=== PATIENT | male | born 1990 | race Caucasian/White ===

== ENCOUNTER 2021-05-15 14:18 | Inpatient (IN) ==
[2021-05-15 15:13] LABS: ABS Eosinophils 0.3 10^3/ul (0-0.6); ABS Lymphocytes 2.1 10^3/ul (1.0-4.8); ABS Monocytes 0.6 10^3/ul (0-0.8); ABS Neutrophils 4.2 10^3/ul (1.5-7.7); Eosinophil % 4.8 %; Hematocrit 40 % (42-52); Hemoglobin 13.5 g/dL (14.0-18.0); Mean Corpuscular HGB Conc 34 g/dL (31-36); Mean Corpuscular Hemoglobin 32 pg (27-31); Mean Corpuscular Volume 96 fL (80-94); Mean Platelet Volume 7.8 fL (7.4-10.4); Platelet Count 291 10^3/uL (150-450); Red Blood Count 4.16 10^6 /uL (4.18-5.48); Red Cell Distribution Width 13 % (10-15); White Blood Count 7.3 10^3/uL (3.5-10.8)
[2021-05-15 15:29] LABS: Urine Appearance Clear; Urine Bilirubin Negative (Negative); Urine Blood Negative (Negative); Urine Color Straw; Urine Glucose Negative (Negative); Urine Ketones Negative (Negative); Urine Nitrite Negative (Negative); Urine Protein Negative (Negative); Urine Specific Gravity 1.009 (1.002-1.030); Urine Urobilinogen Negative (Negative)
[2021-05-15 15:46] LABS: ALT 11 U/L (7-52); AST 19 U/L (13-39); Albumin 4.6 g/dL (3.2-5.2); Albumin/Globulin Ratio 1.9 (1-3); Alkaline Phosphatase 82 U/L (35-149); Anion Gap 8 mmol/L (2-11); Blood Urea Nitrogen 13 mg/dL (6-24); CO2 Carbon Dioxide 26 mmol/L (22-32); Calcium 9.2 mg/dL (8.6-10.3); Chloride 102 mmol/L (101-111); EGFR African American 133.6 (>60); EGFR Non-African American 110.4 (>60); Globulin 2.4 g/dL (2-4); Glucose 120 mg/dL (70-100); Potassium 3.8 mmol/L (3.5-5.0); Sodium 136 mmol/L (135-145)
[2021-05-15 16:04] LABS: Acetaminophen < 15 mcg/mL; Alcohol, S < 10 mg/dL (<10); Salicylate < 2.50 mg/dL (<30)
[2021-05-15 16:10] LABS: Urine Benzodiazepine Screen None Detected (None Detect); Urine Cannabinoids Screen None Detected (None Detect); Urine Opiates Screen None Detected (None Detect)
[2021-05-15 16:14] LABS: TSH Ultra Thyroid Stim Horm 1.08 mcIU/mL (0.34-5.60)
[2021-05-15 20:03] LABS: HIV 4th Generation Nonreactive (Nonreactive)
[2021-05-16] MEDS ORDERED: Lorazepam PYXIS KEY PRN (10:07)
[2021-05-16] MEDS ORDERED: LORazepam PO 0-6 for WAM protocol PO SCH (11:00)
[2021-05-16] MEDS ORDERED: LORazepam IM 0-6 mg for WAM protocol IM SCH (11:00)
[2021-05-17] MEDS: Vitamin THERAPEUTIC TAB PO SCH (08:32)
[2021-05-17] MEDS: Venlafaxine XR 75 mg PO SCH (08:33)
[2021-05-18] MEDS: Vitamin THERAPEUTIC TAB PO SCH (09:13)
[2021-05-18] MEDS: Venlafaxine XR 75 mg PO SCH (09:13)
[2021-05-18] MEDS: Al Hydrox/Mg Hydrox/Simet LIQ 30 ML UDC PO PRN (12:53)
[2021-05-19 08:15] LABS: HDL Cholesterol 63.3 mg/dL
[2021-05-19] MEDS: Vitamin THERAPEUTIC TAB PO SCH (08:24)
[2021-05-19] MEDS: Al Hydrox/Mg Hydrox/Simet LIQ 30 ML UDC PO PRN (11:27)
[2021-05-20] MEDS: Vitamin THERAPEUTIC TAB PO SCH (08:17)
[2021-05-20] MEDS ORDERED: COVID-19 VACCINE, AD26(JANSSEN)/PF 0.5 ML IM ONE (11:12)
[2021-05-20 11:57] LABS: Hepatitis C Antibody Negative (Negative)
[2021-05-20 16:00] LABS: Hepatitis B Core IgM Nonreactive (Nonreactive)
[2021-05-20 22:04] LABS: Hepatitis B Surface Antigen Nonreactive (Nonreactive)
[2021-05-20 22:10] LABS: Hepatitis A Ab IgM Negative (Negative)
[2021-05-21 09:13] VITALS: BP 142/104
[2021-05-21] MEDS: Vitamin THERAPEUTIC TAB PO SCH (09:14)
[2021-05-22 13:14] LABS: Chlamydia trachomatis NAA Negative (Negative); Neisseria gonorrhoeae (GC) NAA Negative (Negative)
[2021-05-23 14:30] LABS: RPR Nonreactive (Nonreactive)
[2021-05-25 15:24] LABS: T.Pallidum TP-PA Negative (Negative)
== END 2021-05-21 15:44 | disposition home or self-care (01) | DRG 897 ==
LOC: ED 14:18 → BSU 05-16 09:53
PROVIDERS: ADMIT Psychiatry & Neurology Psychiatry; ATTEND Psychiatry & Neurology Psychiatry

== ENCOUNTER 2022-07-07 13:20 | Inpatient (IN) ==
[2022-07-07] MEDS ORDERED: LORazepam 2 mg VIAL 1 ml IV PUSH ONE ×4 (13:26→15:36)
[2022-07-07] MEDS ORDERED: Lorazepam PYXIS KEY PRN ×5 (13:26→18:26)
[2022-07-07] MEDS ORDERED: Lactated Ringers 1000 ml BAG 1,000 ML IV ONE (13:26)
[2022-07-07] MEDS ORDERED: Charcoal ACTIVATED 25 GM/120 ML BTL PO ONE (13:27)
[2022-07-07 13:50] LABS: ABS Basophils 0.1 10^3/ul (0-0.2); ABS Eosinophils 0.3 10^3/ul (0-0.6); ABS Lymphocytes 1.7 10^3/ul (1.0-4.8); ABS Monocytes 0.6 10^3/ul (0-0.8); ABS Neutrophils 5.7 10^3/ul (1.5-7.7); Eosinophil % 3.6 %; Hematocrit 37 % (42-52); Hemoglobin 12.2 g/dL (14.0-18.0); Lymphocyte % 20.1 %; Mean Corpuscular HGB Conc 33 g/dL (31-36); Mean Corpuscular Hemoglobin 31 pg (27-31); Mean Corpuscular Volume 95 fL (80-94); Mean Platelet Volume 7.3 fL (7.4-10.4); Platelet Count 388 10^3/uL (150-450); Red Blood Count 3.95 10^6 /uL (4.18-5.48); Red Cell Distribution Width 14 % (10-15); White Blood Count 8.3 10^3/uL (3.5-10.8)
[2022-07-07 14:56] LABS: ALT 21 U/L (7-52); Albumin 4.1 g/dL (3.2-5.2); Albumin/Globulin Ratio 2.2 (1-3); Alcohol, S < 13 mg/dL (<13); Alkaline Phosphatase 65 U/L (35-149); Blood Urea Nitrogen 9 mg/dL (6-24); CO2 Carbon Dioxide 23 mmol/L (22-32); Calcium 8.2 mg/dL (8.6-10.3); Chloride 108 mmol/L (101-111); Creatine Kinase 91 U/L (10-223); Globulin 1.9 g/dL (2-4); Glucose 88 mg/dL (70-100); Lithium 0.63 mmol/L (0.6-1.2); Salicylate < 2.50 mg/dL (<30); Sodium 139 mmol/L (135-145); eGFR CKD-EPI 128.2 (>60)
[2022-07-07 14:58] LABS: Acetaminophen < 15 mcg/mL
[2022-07-07 14:59] LABS: Urine Benzodiazepine Screen None Detected (None Detect); Urine Cannabinoids Screen None Detected (None Detect); Urine Opiates Screen None Detected (None Detect)
[2022-07-07 14:59] LABS: Anion Gap 8 mmol/L (2-11)
[2022-07-07 15:06] LABS: TSH Ultra Thyroid Stim Horm 4.34 mcIU/mL (0.34-5.60)
[2022-07-07 15:22] LABS: Urine Appearance Clear; Urine Bilirubin Negative (Negative); Urine Blood Negative (Negative); Urine Color Straw; Urine Glucose Negative (Negative); Urine Ketones Negative (Negative); Urine Nitrite Negative (Negative); Urine Protein Negative (Negative); Urine Urobilinogen 0.2 (Negative) (Negative)
[2022-07-07] MEDS ORDERED: diazePAM INJ CARPUJECT 5 MG/ML SYRINGE IV ONE (15:36)
[2022-07-07] MEDS ORDERED: NS 0.9% 1000 ml BAG 1,000 ML IV SCH (17:45)
[2022-07-07] MEDS ORDERED: Labetalol IV 5 MG/ML 20 ml VIAL IV PUSH PRN (18:27)
[2022-07-07 18:35] LABS: Potassium Redraw 4.1 mmol/L (3.5-5.0)
[2022-07-07] MEDS ORDERED: Senna TAB 8.6 mg TAB PO SCH (21:00)
[2022-07-07 22:29] LABS: Magnesium 1.9 mg/dL (1.9-2.7); Phosphorus 3.2 mg/dL (2.5-5.0)
[2022-07-07] MEDS: LORazepam 2 mg VIAL 1 ml IV PUSH PRN ×2 (22:46→23:05)
[2022-07-07] MEDS: Polyethylene Glycol 3350 17 GM PACKET PO SCH (23:10)
[2022-07-07] MEDS: Heparin 5000 UNITS/ML 1 mL VIAL SUBCUT SCH (23:11)
[2022-07-07] MEDS ORDERED: Magnesium Sulfate IV 1GM/100ML 1 GM/100 ML BAG IV ONE (23:15)
[2022-07-08 05:52] LABS: ABS Basophils 0.1 10^3/ul (0-0.2); ABS Eosinophils 0.4 10^3/ul (0-0.6); ABS Monocytes 0.7 10^3/ul (0-0.8); ABS Neutrophils 6.6 10^3/ul (1.5-7.7); Eosinophil % 3.9 %; Hematocrit 36 % (42-52); Hemoglobin 11.6 g/dL (14.0-18.0); Lymphocyte % 20.4 %; Mean Corpuscular HGB Conc 32 g/dL (31-36); Mean Corpuscular Hemoglobin 31 pg (27-31); Mean Corpuscular Volume 96 fL (80-94); Mean Platelet Volume 7.4 fL (7.4-10.4); Nucleated Red Blood Cells % 0.1; Platelet Count 360 10^3/uL (150-450); Red Blood Count 3.74 10^6 /uL (4.18-5.48); Red Cell Distribution Width 13 % (10-15); White Blood Count 9.7 10^3/uL (3.5-10.8)
[2022-07-08 06:00] LABS: Calcium 8.9 mg/dL (8.6-10.3); Magnesium 2.2 mg/dL (1.9-2.7); Phosphorus 4.2 mg/dL (2.5-5.0); Potassium 4.1 mmol/L (3.5-5.0); Total Bilirubin 0.6 mg/dL (0.2-1.0); eGFR CKD-EPI 122.7 (>60)
[2022-07-08] MEDS: Heparin 5000 UNITS/ML 1 mL VIAL SUBCUT SCH ×2 (06:17→17:40)
[2022-07-08] MEDS: LORazepam 2 mg VIAL 1 ml IV PUSH PRN ×2 (06:17→07:57)
[2022-07-08] MEDS: Polyethylene Glycol 3350 17 GM PACKET PO SCH (07:57)
[2022-07-08] MEDS ORDERED: Al Hydrox/Mg Hydrox/Simet LIQ 30 ML UDC PO PRN (11:41)
[2022-07-08] MEDS ORDERED: Lithium Carb ER 300 mg TAB(NF) PO ONE (18:19)
[2022-07-08] MEDS: CMCS: Lithium Carb ER 300 mg TAB(NF) PO SCH ×2 (18:21→19:07)
[2022-07-09] MEDS: Multivitamins/Minerals TAB PO SCH (09:00)
[2022-07-09] MEDS: CMCS: Vortioxetine 10 mg TAB (NF) PO SCH (09:00)
[2022-07-09] MEDS: CMCS: Lithium Carb ER 300 mg TAB(NF) PO SCH (21:14)
[2022-07-10] MEDS: CMCS: Vortioxetine 10 mg TAB (NF) PO SCH (09:51)
[2022-07-10] MEDS: Multivitamins/Minerals TAB PO SCH (09:51)
[2022-07-10] MEDS: CMCS: Lithium Carb ER 300 mg TAB(NF) PO SCH (20:55)
[2022-07-11] MEDS: CMCS: Vortioxetine 10 mg TAB (NF) PO SCH (08:28)
[2022-07-11] MEDS: Multivitamins/Minerals TAB PO SCH (08:29)
[2022-07-11] MEDS: CMCS: Lithium Carb ER 300 mg TAB(NF) PO SCH (20:37)
[2022-07-12] MEDS: Multivitamins/Minerals TAB PO SCH (09:43)
[2022-07-12] MEDS: CMCS: Vortioxetine 10 mg TAB (NF) PO SCH (09:43)
[2022-07-12] MEDS: CMCS: Lithium Carb ER 300 mg TAB(NF) PO SCH (20:40)
[2022-07-13] MEDS: CMCS: Vortioxetine 10 mg TAB (NF) PO SCH (09:57)
[2022-07-13] MEDS: Multivitamins/Minerals TAB PO SCH (09:58)
[2022-07-13] MEDS: CMCS: Lithium Carb ER 300 mg TAB(NF) PO SCH (20:13)
[2022-07-14] MEDS: CMCS: Vortioxetine 10 mg TAB (NF) PO SCH (08:34)
[2022-07-14] MEDS: Multivitamins/Minerals TAB PO SCH (08:34)
[2022-07-14] MEDS: CMCS: Lithium Carb ER 300 mg TAB(NF) PO SCH (20:56)
[2022-07-15] MEDS: CMCS: Vortioxetine 10 mg TAB (NF) PO SCH (08:32)
[2022-07-15] MEDS: Multivitamins/Minerals TAB PO SCH (08:36)
[2022-07-15] MEDS: CMCS: Lithium Carb ER 300 mg TAB(NF) PO SCH (21:14)
[2022-07-16] MEDS: Multivitamins/Minerals TAB PO SCH (08:58)
[2022-07-16] MEDS: CMCS: Vortioxetine 10 mg TAB (NF) PO SCH (08:58)
[2022-07-16] MEDS: CMCS: Lithium Carb ER 300 mg TAB(NF) PO SCH (20:24)
[2022-07-17] MEDS: Multivitamins/Minerals TAB PO SCH (07:25)
[2022-07-17] MEDS: CMCS: Vortioxetine 10 mg TAB (NF) PO SCH (07:25)
[2022-07-17] MEDS: CMCS: Lithium Carb ER 300 mg TAB(NF) PO SCH (20:44)
[2022-07-18] MEDS: Multivitamins/Minerals TAB PO SCH (10:04)
[2022-07-18] MEDS: CMCS: Vortioxetine 10 mg TAB (NF) PO SCH (10:04)
[2022-07-18] MEDS: CMCS: Lithium Carb ER 300 mg TAB(NF) PO SCH (21:38)
[2022-07-19] MEDS: Multivitamins/Minerals TAB PO SCH (07:48)
[2022-07-19] MEDS: CMCS: Vortioxetine 10 mg TAB (NF) PO SCH (07:48)
[2022-07-19] MEDS: CMCS: Lithium Carb ER 300 mg TAB(NF) PO SCH (20:07)
[2022-07-20] MEDS: CMCS: Vortioxetine 10 mg TAB (NF) PO SCH (07:57)
[2022-07-20] MEDS: Multivitamins/Minerals TAB PO SCH (07:58)
[2022-07-20 08:05] LABS: HDL Cholesterol 60.9 mg/dL; Lithium 1.25 mmol/L (0.6-1.2)
[2022-07-20 10:55] VITALS: BP 123/79
== END 2022-07-20 12:30 | disposition home or self-care (01) | DRG 917 ==
LOC: ED 13:20 → EDHOLD 17:36 → ICU 20:32 → UNDODISIN 07-08 01:00 → BSU 07-08 15:18
PROVIDERS: ADMIT Surgery Surgical Critical Care; ATTEND Surgery Surgical Critical Care

== ENCOUNTER 2022-07-30 13:46 | Inpatient (IN) ==
[2022-07-30] MEDS ORDERED: Charcoal ACTIVATED 25 GM/120 ML BTL PO ONE (14:10)
[2022-07-30 15:01] LABS: ABS Basophils 0.1 10^3/ul (0-0.2); ABS Eosinophils 0.1 10^3/ul (0-0.6); ABS Lymphocytes 1.5 10^3/ul (1.0-4.8); ABS Monocytes 0.5 10^3/ul (0-0.8); ABS Neutrophils 5.1 10^3/ul (1.5-7.7); Eosinophil % 1.8 %; Hematocrit 36 % (42-52); Hemoglobin 12.1 g/dL (14.0-18.0); Lymphocyte % 20.6 %; Mean Corpuscular HGB Conc 34 g/dL (31-36); Mean Corpuscular Hemoglobin 32 pg (27-31); Mean Corpuscular Volume 94 fL (80-94); Mean Platelet Volume 6.9 fL (7.4-10.4); Platelet Count 389 10^3/uL (150-450); Red Blood Count 3.81 10^6 /uL (4.18-5.48); Red Cell Distribution Width 13 % (10-15); White Blood Count 7.4 10^3/uL (3.5-10.8)
[2022-07-30 15:48] LABS: ALT 20 U/L (7-52); AST 16 U/L (13-39); Albumin 4.7 g/dL (3.2-5.2); Albumin/Globulin Ratio 2.1 (1-3); Alcohol, S < 13 mg/dL (<13); Alkaline Phosphatase 73 U/L (35-149); Anion Gap 8 mmol/L (2-11); Blood Urea Nitrogen 11 mg/dL (6-24); CO2 Carbon Dioxide 27 mmol/L (22-32); Calcium 9.5 mg/dL (8.6-10.3); Chloride 103 mmol/L (101-111); Globulin 2.2 g/dL (2-4); Glucose 87 mg/dL (70-100); Potassium 4.1 mmol/L (3.5-5.0); Salicylate < 2.50 mg/dL (<30); Sodium 138 mmol/L (135-145); Total Protein 6.9 g/dL (6.4-8.9); eGFR CKD-EPI 118.1 (>60)
[2022-07-30 15:56] LABS: Acetaminophen < 15 mcg/mL
[2022-07-30 15:57] LABS: Urine Appearance Clear; Urine Bilirubin Negative (Negative); Urine Blood Negative (Negative); Urine Color Straw; Urine Glucose Negative (Negative); Urine Ketones Negative (Negative); Urine Nitrite Negative (Negative); Urine Protein Negative (Negative); Urine Specific Gravity 1.004 (1.002-1.030); Urine Urobilinogen Negative (Negative)
[2022-07-30 16:00] LABS: TSH Ultra Thyroid Stim Horm 1.52 mcIU/mL (0.34-5.60)
[2022-07-30 16:14] LABS: Lithium 0.18 mmol/L (0.6-1.2)
[2022-07-30 16:18] LABS: Urine Benzodiazepine Screen None Detected (None Detect); Urine Cannabinoids Screen None Detected (None Detect); Urine Opiates Screen None Detected (None Detect)
[2022-07-31 07:54] LABS: HDL Cholesterol 50.6 mg/dL
[2022-07-31] MEDS: Vortioxetine 10 mg TAB (NF) PO SCH (08:52)
[2022-08-01] MEDS: Vortioxetine 10 mg TAB (NF) PO SCH (08:44)
[2022-08-01] MEDS: Al Hydrox/Mg Hydrox/Simet LIQ 30 ML UDC PO PRN (13:45)
[2022-08-01] MEDS ORDERED: Ondansetron ODT 4 mg TAB 4 MG TAB PO ONE (18:49)
[2022-08-01] MEDS: Lithium Carb ER 300 mg TAB(NF) PO SCH (21:00)
[2022-08-02] MEDS: Vortioxetine 10 mg TAB (NF) PO SCH (10:13)
[2022-08-02] MEDS: Multivitamins/Minerals TAB PO SCH (10:15)
[2022-08-02] MEDS: Lithium Carb ER 300 mg TAB(NF) PO SCH (20:59)
[2022-08-03] MEDS: Multivitamins/Minerals TAB PO SCH (11:15)
[2022-08-03] MEDS: Vortioxetine 10 mg TAB (NF) PO SCH (11:16)
[2022-08-03 12:41] LABS: ABS Basophils 0.1 10^3/ul (0-0.2); ABS Eosinophils 0.3 10^3/ul (0-0.6); ABS Lymphocytes 1.9 10^3/ul (1.0-4.8); ABS Monocytes 0.6 10^3/ul (0-0.8); ABS Neutrophils 4.3 10^3/ul (1.5-7.7); Eosinophil % 4.1 %; Hematocrit 41 % (42-52); Hemoglobin 13.4 g/dL (14.0-18.0); Lymphocyte % 26.8 %; Mean Corpuscular HGB Conc 33 g/dL (31-36); Mean Corpuscular Hemoglobin 31 pg (27-31); Mean Corpuscular Volume 95 fL (80-94); Mean Platelet Volume 7.1 fL (7.4-10.4); Platelet Count 399 10^3/uL (150-450); Red Cell Distribution Width 14 % (10-15); White Blood Count 7.1 10^3/uL (3.5-10.8)
[2022-08-03] MEDS: Lithium Carb ER 300 mg TAB(NF) PO SCH (22:13)
[2022-08-04] MEDS: Vortioxetine 10 mg TAB (NF) PO SCH (08:37)
[2022-08-04] MEDS: Multivitamins/Minerals TAB PO SCH (08:38)
[2022-08-04] MEDS: Lithium Carb ER 300 mg TAB(NF) PO SCH (21:24)
[2022-08-05] MEDS: Vortioxetine 10 mg TAB (NF) PO SCH (08:40)
[2022-08-05] MEDS: Multivitamins/Minerals TAB PO SCH (08:41)
[2022-08-05] MEDS: Lithium Carb ER 300 mg TAB(NF) PO SCH (21:01)
[2022-08-06] MEDS: Multivitamins/Minerals TAB PO SCH (09:11)
[2022-08-06] MEDS: Vortioxetine 10 mg TAB (NF) PO SCH (09:11)
[2022-08-06] MEDS: Magnesium Hydroxide LIQ 30 ML UDC PO PRN (16:38)
[2022-08-06] MEDS: Lithium Carb ER 300 mg TAB(NF) PO SCH (21:53)
[2022-08-07] MEDS: Multivitamins/Minerals TAB PO SCH (08:58)
[2022-08-07] MEDS: Lithium Carb ER 300 mg TAB(NF) PO SCH (21:06)
[2022-08-08] MEDS: Multivitamins/Minerals TAB PO SCH (09:34)
[2022-08-08] MEDS: Lithium Carb ER 300 mg TAB(NF) PO SCH (20:03)
[2022-08-09] MEDS: Multivitamins/Minerals TAB PO SCH (08:19)
[2022-08-09] MEDS: Lithium Carb ER 300 mg TAB(NF) PO SCH (20:07)
[2022-08-10] MEDS: Multivitamins/Minerals TAB PO SCH (08:42)
[2022-08-10 19:06] LABS: ABS Basophils 0.1 10^3/ul (0-0.2); ABS Eosinophils 0.4 10^3/ul (0-0.6); ABS Lymphocytes 2.6 10^3/ul (1.0-4.8); ABS Monocytes 0.9 10^3/ul (0-0.8); ABS Neutrophils 6.5 10^3/ul (1.5-7.7); Eosinophil % 3.7 %; Hematocrit 36 % (42-52); Lymphocyte % 24.9 %; Mean Corpuscular HGB Conc 33 g/dL (31-36); Mean Corpuscular Hemoglobin 31 pg (27-31); Mean Corpuscular Volume 93 fL (80-94); Mean Platelet Volume 7.3 fL (7.4-10.4); Platelet Count 308 10^3/uL (150-450); Red Blood Count 3.86 10^6 /uL (4.18-5.48); Red Cell Distribution Width 14 % (10-15); White Blood Count 10.4 10^3/uL (3.5-10.8)
[2022-08-10] MEDS: Lithium Carb ER 300 mg TAB(NF) PO SCH (20:34)
[2022-08-11] MEDS: Multivitamins/Minerals TAB PO SCH (11:51)
[2022-08-11 13:50] LABS: Urine Appearance Clear; Urine Bilirubin Negative (Negative); Urine Blood Negative (Negative); Urine Color Yellow; Urine Glucose Negative (Negative); Urine Ketones Negative (Negative); Urine Nitrite Negative (Negative); Urine Protein Negative (Negative); Urine Specific Gravity 1.014 (1.002-1.030); Urine Urobilinogen Negative (Negative)
[2022-08-11] MEDS: Al Hydrox/Mg Hydrox/Simet LIQ 30 ML UDC PO PRN (17:06)
[2022-08-11] MEDS: Lithium Carb ER 300 mg TAB(NF) PO SCH (21:10)
[2022-08-12] MEDS: Multivitamins/Minerals TAB PO SCH (09:46)
[2022-08-12] MEDS: Magnesium Hydroxide LIQ 30 ML UDC PO PRN (15:56)
[2022-08-12] MEDS: Lithium Carb ER 300 mg TAB(NF) PO SCH (21:38)
[2022-08-13] MEDS: Multivitamins/Minerals TAB PO SCH (10:11)
[2022-08-13] MEDS: OLANZapine 5 mg TAB *ODT PO PRN ×2 (12:23→18:04)
[2022-08-13] MEDS: Lithium Carb ER 300 mg TAB(NF) PO SCH (20:22)
[2022-08-14] MEDS: Magnesium Hydroxide LIQ 30 ML UDC PO PRN (08:50)
[2022-08-14] MEDS: OLANZapine 5 mg TAB *ODT PO PRN ×2 (08:50→14:35)
[2022-08-14] MEDS: Multivitamins/Minerals TAB PO SCH (08:50)
[2022-08-14] MEDS: Lithium Carb ER 300 mg TAB(NF) PO SCH (20:11)
[2022-08-15] MEDS: Multivitamins/Minerals TAB PO SCH (08:41)
[2022-08-15] MEDS: OLANZapine 5 mg TAB *ODT PO PRN ×2 (09:18→14:59)
[2022-08-15] MEDS: Lithium Carb ER 300 mg TAB(NF) PO SCH (20:19)
[2022-08-16] MEDS: Multivitamins/Minerals TAB PO SCH (08:56)
[2022-08-16] MEDS: OLANZapine 5 mg TAB *ODT PO PRN ×2 (08:57→13:28)
[2022-08-16] MEDS: Magnesium Hydroxide LIQ 30 ML UDC PO PRN (14:28)
[2022-08-16 19:14] LABS: ABS Basophils 0.1 10^3/ul (0-0.2); ABS Eosinophils 0.3 10^3/ul (0-0.6); ABS Lymphocytes 2.1 10^3/ul (1.0-4.8); ABS Monocytes 0.9 10^3/ul (0-0.8); ABS Neutrophils 7.9 10^3/ul (1.5-7.7); Eosinophil % 2.9 %; Hematocrit 36 % (42-52); Hemoglobin 11.8 g/dL (14.0-18.0); Lymphocyte % 18.6 %; Mean Corpuscular HGB Conc 33 g/dL (31-36); Mean Corpuscular Hemoglobin 31 pg (27-31); Mean Corpuscular Volume 94 fL (80-94); Mean Platelet Volume 7.5 fL (7.4-10.4); Platelet Count 342 10^3/uL (150-450); Red Blood Count 3.85 10^6 /uL (4.18-5.48); Red Cell Distribution Width 14 % (10-15); White Blood Count 11.3 10^3/uL (3.5-10.8)
[2022-08-16] MEDS: Lithium Carb ER 300 mg TAB(NF) PO SCH (20:56)
[2022-08-17] MEDS: OLANZapine 5 mg TAB *ODT PO PRN ×3 (07:21→18:06)
[2022-08-17] MEDS: Multivitamins/Minerals TAB PO SCH (09:22)
[2022-08-17] MEDS: Lithium Carb ER 300 mg TAB(NF) PO SCH (20:26)
[2022-08-18] MEDS: Multivitamins/Minerals TAB PO SCH (08:32)
[2022-08-18] MEDS: Magnesium Hydroxide LIQ 30 ML UDC PO PRN (11:49)
[2022-08-18] MEDS: OLANZapine 5 mg TAB *ODT PO PRN (13:09)
[2022-08-18] MEDS: Lithium Carb ER 300 mg TAB(NF) PO SCH (19:45)
[2022-08-19 09:18] LABS: Clozapine 163 ng/mL (350-600); Clozapine & Norclozapine Level 332 ng/mL; Norclozapine 169 ng/mL
[2022-08-19] MEDS: Multivitamins/Minerals TAB PO SCH (09:19)
[2022-08-19] MEDS: Al Hydrox/Mg Hydrox/Simet LIQ 30 ML UDC PO PRN (17:23)
[2022-08-19] MEDS: Magnesium Hydroxide LIQ 30 ML UDC PO PRN (18:30)
[2022-08-19] MEDS: Lithium Carb ER 300 mg TAB(NF) PO SCH (19:57)
[2022-08-20] MEDS: Multivitamins/Minerals TAB PO SCH (08:33)
[2022-08-20] MEDS: Al Hydrox/Mg Hydrox/Simet LIQ 30 ML UDC PO PRN (10:44)
[2022-08-20] MEDS: Magnesium Hydroxide LIQ 30 ML UDC PO PRN (11:50)
[2022-08-20] MEDS: Polyethylene Glycol 3350 17 GM PACKET PO PRN (14:19)
[2022-08-20] MEDS: Lithium Carb ER 300 mg TAB(NF) PO SCH (21:15)
[2022-08-21] MEDS: Polyethylene Glycol 3350 17 GM PACKET PO PRN (08:32)
[2022-08-21] MEDS: Multivitamins/Minerals TAB PO SCH (08:32)
[2022-08-21] MEDS: Lithium Carb ER 300 mg TAB(NF) PO SCH (20:16)
[2022-08-22] MEDS: Multivitamins/Minerals TAB PO SCH (08:35)
[2022-08-22] MEDS: Al Hydrox/Mg Hydrox/Simet LIQ 30 ML UDC PO PRN (18:05)
[2022-08-22] MEDS: Lithium Carb ER 300 mg TAB(NF) PO SCH (21:04)
[2022-08-23 08:10] VITALS: BP 141/96
[2022-08-23] MEDS: Multivitamins/Minerals TAB PO SCH (08:19)
[2022-08-23] MEDS: Al Hydrox/Mg Hydrox/Simet LIQ 30 ML UDC PO PRN (12:52)
== END 2022-08-23 14:27 | disposition home or self-care (01) | DRG 885 ==
LOC: ED 13:46 → BSU 23:00
PROVIDERS: ADMIT Psychiatry & Neurology Psychiatry; ATTEND Psychiatry & Neurology Psychiatry

== ENCOUNTER 2022-08-30 13:03 | Inpatient (IN) ==
[2022-08-30] MEDS ORDERED: Lorazepam PYXIS KEY PRN ×4 (13:11→19:47)
[2022-08-30] MEDS ORDERED: LORazepam 2 mg VIAL 1 ml IV PUSH ONE ×3 (13:11→17:56)
[2022-08-30] MEDS ORDERED: NS 0.9% 1000 ml BAG 1,000 ML IV ONE (13:12)
[2022-08-30 13:35] LABS: ABS Basophils 0.1 10^3/ul (0-0.2); ABS Eosinophils 0.4 10^3/ul (0-0.6); ABS Lymphocytes 3.1 10^3/ul (1.0-4.8); ABS Monocytes 1.1 10^3/ul (0-0.8); ABS Neutrophils 8.1 10^3/ul (1.5-7.7); Eosinophil % 3.2 %; Hematocrit 38 % (42-52); Hemoglobin 12.4 g/dL (14.0-18.0); Lymphocyte % 24.5 %; Mean Corpuscular HGB Conc 33 g/dL (31-36); Mean Corpuscular Hemoglobin 31 pg (27-31); Mean Corpuscular Volume 93 fL (80-94); Mean Platelet Volume 7.4 fL (7.4-10.4); Nucleated Red Blood Cells % 0.1; Platelet Count 402 10^3/uL (150-450); Red Blood Count 4.04 10^6 /uL (4.18-5.48); Red Cell Distribution Width 13 % (10-15); White Blood Count 12.8 10^3/uL (3.5-10.8)
[2022-08-30 14:07] LABS: ALT 52 U/L (7-52); AST 27 U/L (13-39); Acetaminophen < 15 mcg/mL; Albumin 4.8 g/dL (3.2-5.2); Albumin/Globulin Ratio 1.9 (1-3); Alcohol, S < 13 mg/dL (<13); Alkaline Phosphatase 73 U/L (35-149); Anion Gap 10 mmol/L (2-11); Blood Urea Nitrogen 13 mg/dL (6-24); CO2 Carbon Dioxide 26 mmol/L (22-32); Calcium 9.4 mg/dL (8.6-10.3); Chloride 103 mmol/L (101-111); Creatine Kinase 56 U/L (10-223); Globulin 2.5 g/dL (2-4); Glucose 111 mg/dL (70-100); Lithium 0.91 mmol/L (0.6-1.2); Potassium 3.5 mmol/L (3.5-5.0); Salicylate < 2.50 mg/dL (<30); Sodium 139 mmol/L (135-145); Total Protein 7.3 g/dL (6.4-8.9); eGFR CKD-EPI 120.8 (>60)
[2022-08-30 14:20] LABS: TSH Ultra Thyroid Stim Horm 6.31 mcIU/mL (0.34-5.60)
[2022-08-30 14:53] LABS: Magnesium 2.1 mg/dL (1.9-2.7)
[2022-08-30] MEDS ORDERED: LORazepam 2 mg VIAL 1 ml ONE (15:15)
[2022-08-30 16:35] LABS: Urine Benzodiazepine Screen None Detected (None Detect); Urine Cannabinoids Screen None Detected (None Detect); Urine Opiates Screen None Detected (None Detect)
[2022-08-30] MEDS ORDERED: NS 0.9% 1000 ml BAG 2,000 ML IV ONE (17:43)
[2022-08-30] MEDS ORDERED: Ondansetron 4 mg VIAL 2 MG/ML 2 ml VIAL IV PRN (18:58)
[2022-08-30] MEDS ORDERED: Lactated Ringers 1000 ml BAG 1,000 ML IV ONE (19:52)
[2022-08-31] MEDS: LORazepam 2 mg VIAL 1 ml IV PUSH PRN ×2 (01:02→08:42)
[2022-08-31 05:55] LABS: ABS Basophils 0.1 10^3/ul (0-0.2); ABS Eosinophils 0.3 10^3/ul (0-0.6); ABS Lymphocytes 1.8 10^3/ul (1.0-4.8); ABS Monocytes 0.9 10^3/ul (0-0.8); ABS Neutrophils 6.1 10^3/ul (1.5-7.7); Eosinophil % 3.6 %; Hematocrit 36 % (42-52); Hemoglobin 11.9 g/dL (14.0-18.0); Lymphocyte % 19.7 %; Mean Corpuscular HGB Conc 33 g/dL (31-36); Mean Corpuscular Hemoglobin 31 pg (27-31); Mean Corpuscular Volume 94 fL (80-94); Mean Platelet Volume 7.2 fL (7.4-10.4); Platelet Count 370 10^3/uL (150-450); Red Blood Count 3.83 10^6 /uL (4.18-5.48); Red Cell Distribution Width 14 % (10-15); White Blood Count 9.3 10^3/uL (3.5-10.8)
[2022-08-31 06:38] LABS: % Iron Saturation 37 % (15-55); Anion Gap 8 mmol/L (2-11); Blood Urea Nitrogen 9 mg/dL (6-24); CO2 Carbon Dioxide 27 mmol/L (22-32); Calcium 9.4 mg/dL (8.6-10.3); Chloride 106 mmol/L (101-111); Glucose 90 mg/dL (70-100); Iron 141 ug/dL (50-212); Lithium 0.54 mmol/L (0.6-1.2); Potassium 4.6 mmol/L (3.5-5.0); Sodium 141 mmol/L (135-145); Total Iron Binding Capacity 379 mcg/dL (250-450); Transferrin 271 mg/dL (203-362); Unsaturated Iron Binding 238 ug/dL; eGFR CKD-EPI 122.7 (>60)
[2022-08-31 06:57] LABS: Ferritin 89.8 ng/mL (24-336)
[2022-08-31 07:01] LABS: Vitamin B12 403 pg/mL (180-914)
[2022-08-31 08:39] LABS: Folate > 20.00 ng/mL (5.90-24.80)
[2022-08-31] MEDS: OLANZapine 5 mg TAB *ODT PO PRN (15:19)
[2022-08-31] MEDS: CMCS: Lithium Carb ER 300 mg TAB(NF) PO SCH (21:43)
[2022-09-01 08:39] LABS: HDL Cholesterol 60.1 mg/dL
[2022-09-01] MEDS: CMCS: Lithium Carb ER 300 mg TAB(NF) PO SCH (22:04)
[2022-09-02] MEDS: CMCS: Lithium Carb ER 300 mg TAB(NF) PO SCH (21:19)
[2022-09-03] MEDS: OLANZapine 5 mg TAB *ODT PO PRN (17:16)
[2022-09-03] MEDS: CMCS: Lithium Carb ER 300 mg TAB(NF) PO SCH (20:42)
[2022-09-04] MEDS: CMCS: Lithium Carb ER 300 mg TAB(NF) PO SCH (20:49)
[2022-09-05] MEDS: Al Hydrox/Mg Hydrox/Simet LIQ 30 ML UDC PO PRN (14:33)
[2022-09-05] MEDS: CMCS: Lithium Carb ER 300 mg TAB(NF) PO SCH (20:06)
[2022-09-06] MEDS: CMCS: Lithium Carb ER 300 mg TAB(NF) PO SCH (20:17)
[2022-09-07 00:35] LABS: Clozapine 169 ng/mL (350-600); Clozapine & Norclozapine Level 336 ng/mL; Norclozapine 167 ng/mL
[2022-09-07 14:34] LABS: ABS Basophils 0.1 10^3/ul (0-0.2); ABS Eosinophils 0.4 10^3/ul (0-0.6); ABS Lymphocytes 2.1 10^3/ul (1.0-4.8); ABS Monocytes 1.1 10^3/ul (0-0.8); ABS Neutrophils 11.5 10^3/ul (1.5-7.7); Eosinophil % 2.4 %; Hematocrit 40 % (42-52); Hemoglobin 13.7 g/dL (14.0-18.0); Mean Corpuscular HGB Conc 34 g/dL (31-36); Mean Corpuscular Hemoglobin 32 pg (27-31); Mean Corpuscular Volume 93 fL (80-94); Mean Platelet Volume 7.4 fL (7.4-10.4); Platelet Count 379 10^3/uL (150-450); Red Blood Count 4.32 10^6 /uL (4.18-5.48); Red Cell Distribution Width 14 % (10-15); White Blood Count 15.1 10^3/uL (3.5-10.8)
[2022-09-07] MEDS: CMCS: Lithium Carb ER 300 mg TAB(NF) PO SCH (20:31)
[2022-09-08] MEDS: Al Hydrox/Mg Hydrox/Simet LIQ 30 ML UDC PO PRN (15:49)
[2022-09-08] MEDS: CMCS: Lithium Carb ER 300 mg TAB(NF) PO SCH (21:15)
[2022-09-09] MEDS: CMCS: Lithium Carb ER 300 mg TAB(NF) PO SCH (22:07)
[2022-09-10] MEDS: CMCS: Lithium Carb ER 300 mg TAB(NF) PO SCH (20:01)
[2022-09-11] MEDS: CMCS: Lithium Carb ER 300 mg TAB(NF) PO SCH (20:33)
[2022-09-12] MEDS: CMCS: Lithium Carb ER 300 mg TAB(NF) PO SCH (21:00)
[2022-09-12] MEDS ORDERED: Lithium Carbonate ER 450mg TAB PO ONE (21:00)
[2022-09-13] MEDS: CMCS: Lithium Carb ER 300 mg TAB(NF) PO SCH (21:08)
[2022-09-14 19:24] LABS: ABS Basophils 0.1 10^3/ul (0-0.2); ABS Eosinophils 0.4 10^3/ul (0-0.6); ABS Lymphocytes 2.5 10^3/ul (1.0-4.8); ABS Monocytes 0.6 10^3/ul (0-0.8); ABS Neutrophils 6.3 10^3/ul (1.5-7.7); Eosinophil % 4.1 %; Hematocrit 42 % (42-52); Hemoglobin 13.7 g/dL (14.0-18.0); Mean Corpuscular HGB Conc 33 g/dL (31-36); Mean Corpuscular Hemoglobin 31 pg (27-31); Mean Corpuscular Volume 93 fL (80-94); Mean Platelet Volume 7.7 fL (7.4-10.4); Platelet Count 326 10^3/uL (150-450); Red Blood Count 4.47 10^6 /uL (4.18-5.48); Red Cell Distribution Width 14 % (10-15); White Blood Count 9.8 10^3/uL (3.5-10.8)
[2022-09-14] MEDS: CMCS: Lithium Carb ER 300 mg TAB(NF) PO SCH (21:37)
[2022-09-15] MEDS: Al Hydrox/Mg Hydrox/Simet LIQ 30 ML UDC PO PRN (09:22)
[2022-09-15] MEDS: Lithium Carb ER 300 mg TAB(NF) PO SCH (19:38)
[2022-09-16] MEDS: Lithium Carb ER 300 mg TAB(NF) PO SCH ×2 (08:16→20:05)
[2022-09-16] MEDS: Al Hydrox/Mg Hydrox/Simet LIQ 30 ML UDC PO PRN (16:02)
[2022-09-17] MEDS: Lithium Carb ER 300 mg TAB(NF) PO SCH ×2 (07:25→20:11)
[2022-09-17 22:25] LABS: Clozapine 254 ng/mL (350-600); Clozapine & Norclozapine Level 599 ng/mL; Norclozapine 345 ng/mL
[2022-09-18] MEDS: Lithium Carb ER 300 mg TAB(NF) PO SCH ×2 (08:20→20:11)
[2022-09-19] MEDS: Lithium Carb ER 300 mg TAB(NF) PO SCH ×2 (08:22→19:37)
[2022-09-19] MEDS: Al Hydrox/Mg Hydrox/Simet LIQ 30 ML UDC PO PRN ×2 (08:48→17:07)
[2022-09-20] MEDS: Lithium Carb ER 300 mg TAB(NF) PO SCH ×2 (08:11→20:31)
[2022-09-20] MEDS ORDERED: Polyethylene Glycol 3350 17 GM PACKET ONE (19:23)
[2022-09-20] MEDS: Polyethylene Glycol 3350 17 GM PACKET PO PRN (19:30)
[2022-09-21 08:03] LABS: ABS Basophils 0.1 10^3/ul (0-0.2); ABS Eosinophils 0.4 10^3/ul (0-0.6); ABS Lymphocytes 1.8 10^3/ul (1.0-4.8); ABS Monocytes 0.9 10^3/ul (0-0.8); ABS Neutrophils 6.4 10^3/ul (1.5-7.7); Eosinophil % 4.4 %; Hematocrit 38 % (42-52); Hemoglobin 12.3 g/dL (14.0-18.0); Mean Corpuscular HGB Conc 33 g/dL (31-36); Mean Corpuscular Hemoglobin 31 pg (27-31); Mean Corpuscular Volume 94 fL (80-94); Mean Platelet Volume 7.8 fL (7.4-10.4); Platelet Count 296 10^3/uL (150-450); Red Blood Count 4.02 10^6 /uL (4.18-5.48); Red Cell Distribution Width 13 % (10-15); White Blood Count 9.7 10^3/uL (3.5-10.8)
[2022-09-21] MEDS: Lithium Carb ER 300 mg TAB(NF) PO SCH ×2 (08:10→21:32)
[2022-09-21] MEDS: Polyethylene Glycol 3350 17 GM PACKET PO PRN (13:58)
[2022-09-22] MEDS: Lithium Carb ER 300 mg TAB(NF) PO SCH ×2 (08:24→20:39)
[2022-09-22] MEDS: Al Hydrox/Mg Hydrox/Simet LIQ 30 ML UDC PO PRN (18:29)
[2022-09-23] MEDS: Lithium Carb ER 300 mg TAB(NF) PO SCH ×2 (08:46→20:19)
[2022-09-23] MEDS: Al Hydrox/Mg Hydrox/Simet LIQ 30 ML UDC PO PRN (14:45)
[2022-09-24] MEDS: Polyethylene Glycol 3350 17 GM PACKET PO PRN (08:14)
[2022-09-24] MEDS: Lithium Carb ER 300 mg TAB(NF) PO SCH ×2 (08:15→20:05)
[2022-09-24] MEDS: Al Hydrox/Mg Hydrox/Simet LIQ 30 ML UDC PO PRN (18:59)
[2022-09-25] MEDS: Lithium Carb ER 300 mg TAB(NF) PO SCH ×2 (07:48→20:33)
[2022-09-26] MEDS: Lithium Carb ER 300 mg TAB(NF) PO SCH ×2 (08:26→20:22)
[2022-09-27] MEDS: Lithium Carb ER 300 mg TAB(NF) PO SCH ×2 (08:44→20:50)
[2022-09-27 19:36] LABS: ABS Basophils 0.1 10^3/ul (0-0.2); ABS Eosinophils 0.5 10^3/ul (0-0.6); ABS Lymphocytes 2.3 10^3/ul (1.0-4.8); ABS Neutrophils 8.6 10^3/ul (1.5-7.7); Eosinophil % 3.8 %; Hematocrit 40 % (42-52); Lymphocyte % 18.6 %; Mean Corpuscular HGB Conc 33 g/dL (31-36); Mean Corpuscular Hemoglobin 31 pg (27-31); Mean Corpuscular Volume 94 fL (80-94); Platelet Count 314 10^3/uL (150-450); Red Blood Count 4.22 10^6 /uL (4.18-5.48); Red Cell Distribution Width 13 % (10-15); White Blood Count 12.5 10^3/uL (3.5-10.8)
[2022-09-28] MEDS: Lithium Carb ER 300 mg TAB(NF) PO SCH (08:22)
[2022-09-28 08:55] VITALS: BP 129/86
== END 2022-09-28 11:27 | disposition home or self-care (01) | DRG 917 ==
LOC: EDHOLD 13:03 → MEDTELE 13:03 → ED 13:03 → SUATTDRO 18:58 → EDHOLD 22:31 → MEDTELE 23:59 → BSU 08-31 14:09
PROVIDERS: ADMIT Student in an Organized Health Care Education/Training Program; ATTEND Psychiatry & Neurology Psychiatry

== ENCOUNTER 2023-03-28 21:53 | Inpatient (IN) ==
[2023-03-28] MEDS ORDERED: Charcoal Activated/SORBITOL 50 GM/240 ML BTL PO ONE (21:58)
[2023-03-28] MEDS ORDERED: Ondansetron 4 mg VIAL 2 MG/ML 2 ml VIAL IV ONE (22:29)
[2023-03-28] MEDS ORDERED: Lactated Ringers 1000 ml BAG 1,000 ML IV ONE ×2 (22:29→22:31)
[2023-03-28 22:37] LABS: ABS Basophils 0.1 10^3/uL (0.0-0.1); ABS Eosinophils 0.3 10^3/uL (0.0-0.5); ABS Lymphocytes 2.5 10^3/uL (1.0-4.8); ABS Monocytes 0.7 10^3/uL (0.0-1.1); ABS Neutrophils 5.3 10^3/uL (1.5-7.6); Eosinophil % 3.5 %; Hematocrit 37.4 % (38-53); Hemoglobin 12.8 g/dL (13.2-16.3); Lymphocyte % 27.6 %; Mean Corpuscular Hgb Conc 34.3 g/dL (31-36); Mean Corpuscular Volume 93.3 fL (80-97); Mean Platelet Volume 8.2 fL (7.5-11.2); Platelet Count 345 10^3/uL (150-450); Red Blood Count 4.01 10^6/uL (4.06-5.63); Red Cell Distribution Width 13.5 % (12-17)
[2023-03-28 22:52] LABS: ALT 53 U/L (7-52); AST 49 U/L (13-39); Albumin 4.6 g/dL (3.2-5.2); Albumin/Globulin Ratio 1.8 (1-3); Alkaline Phosphatase 99 U/L (35-149); Anion Gap 9 mmol/L (2-16); Blood Urea Nitrogen 7 mg/dL (6-24); CO2 Carbon Dioxide 25 mmol/L (22-32); Calcium 9.3 mg/dL (8.6-10.3); Chloride 102 mmol/L (101-111); Creatinine, Serum 0.68 mg/dL (0.67-1.17); Globulin 2.6 g/dL (2-4); Glucose 88 mg/dL (70-100); Potassium 3.2 mmol/L (3.5-5.0); Sodium 136 mmol/L (135-145); Total Protein 7.2 g/dL (6.4-8.9); Urine Appearance Clear; Urine Bilirubin Negative (Negative); Urine Blood Negative (Negative); Urine Color Straw; Urine Glucose Negative (Negative); Urine Ketones Negative (Negative); Urine Nitrite Negative (Negative); Urine Protein Negative (Negative); Urine Specific Gravity 1.005 (1.002-1.030); Urine Urobilinogen Negative (Negative); eGFR CKD-EPI 125.9 (>60)
[2023-03-28 22:54] LABS: Acetaminophen < 15 mcg/mL; Alcohol, S < 13 mg/dL (<13); Lithium 0.81 mmol/L (0.6-1.2); Salicylate < 2.50 mg/dL (<30)
[2023-03-28 22:59] LABS: Urine Benzodiazepine Screen None Detected (None Detect); Urine Cannabinoids Screen None Detected (None Detect); Urine Opiates Screen None Detected (None Detect)
[2023-03-28 23:10] LABS: TSH Ultra Thyroid Stim Horm 4.32 mcIU/mL (0.34-5.60)
[2023-03-28] MEDS: NS 0.9% 1000 ml BAG 2,000 ML IV ONE (23:53)
[2023-03-29] MEDS ORDERED: Ondansetron 4 mg VIAL 2 MG/ML 2 ml VIAL IV ONE (00:11)
[2023-03-29 01:09] LABS: Phosphorus 2.8 mg/dL (2.5-5.0)
[2023-03-29 01:10] LABS: INR 1.05 (0.88-1.18)
[2023-03-29] MEDS: KCL 20 MEQ/100 ML IVPREMIX 20 MEQ/100 ML BAG IV SCH ×2 (01:32→04:05)
[2023-03-29] MEDS: Pantoprazole VIAL 40 MG VIAL IV SCH (04:05)
[2023-03-29 04:15] LABS: ABS Basophils 0.1 10^3/uL (0.0-0.1); ABS Eosinophils 0.2 10^3/uL (0.0-0.5); ABS Lymphocytes 1.1 10^3/uL (1.0-4.8); ABS Monocytes 0.6 10^3/uL (0.0-1.1); ABS Neutrophils 7.7 10^3/uL (1.5-7.6); Eosinophil % 1.6 %; Hematocrit 37.9 % (38-53); Hemoglobin 12.4 g/dL (13.2-16.3); Lymphocyte % 11.2 %; Mean Corpuscular Hemoglobin 31.2 pg (27-33); Mean Corpuscular Hgb Conc 32.8 g/dL (31-36); Mean Corpuscular Volume 95.1 fL (80-97); Platelet Count 293 10^3/uL (150-450); Red Blood Count 3.99 10^6/uL (4.06-5.63); Red Cell Distribution Width 13.5 % (12-17); White Blood Count 9.6 10^3/uL (3.6-10.2)
[2023-03-29] MEDS: NS 0.9% 1000 ml BAG 2,000 ML IV ONE (04:23)
[2023-03-29 04:32] LABS: Albumin 4.1 g/dL (3.2-5.2); Albumin/Globulin Ratio 1.9 (1-3); Calcium 8.9 mg/dL (8.6-10.3); Creatinine, Serum 0.77 mg/dL (0.67-1.17); Globulin 2.2 g/dL (2-4); Magnesium 2.1 mg/dL (1.9-2.7); Total Bilirubin 0.3 mg/dL (0.2-1.0); Total Protein 6.3 g/dL (6.4-8.9); eGFR CKD-EPI 121.2 (>60)
[2023-03-29 04:46] LABS: Phosphorus 2.2 mg/dL (2.5-5.0)
[2023-03-29 04:47] LABS: Potassium 3.7 mmol/L (3.5-5.0)
[2023-03-29 04:49] LABS: Lithium 2.35 mmol/L (0.6-1.2)
[2023-03-29] MEDS ORDERED: KCL 20 MEQ/100 ML IVPREMIX 20 MEQ/100 ML BAG IV ONE (05:03)
[2023-03-29] MEDS ORDERED: Ondansetron 4 mg VIAL 2 MG/ML 2 ml VIAL IV PRN (06:00)
[2023-03-29] MEDS ORDERED: LORazepam 2 mg VIAL 1 ml ONE (06:02)
[2023-03-29] MEDS ORDERED: Lorazepam PYXIS KEY PRN (06:29)
[2023-03-29] MEDS ORDERED: LORazepam 2 mg VIAL 1 ml IV PUSH ONE (06:29)
[2023-03-29] MEDS ORDERED: NS 0.9% 1000 ml BAG 200 ML IV PRN (07:24)
[2023-03-29] MEDS ORDERED: Albumin Human 25% 25 GM/100 ML BTL IV PRN (07:24)
[2023-03-29] MEDS ORDERED: NS 0.9% 1000 ml BAG 100 ML IV PRN (07:24)
[2023-03-29] MEDS: Heparin 1,000 UNIT/ML 10 ml (10,000 UNITS) CATHLAB/DIALYSIS DIALYSIS SCH ×5 (08:15→12:36)
[2023-03-29] MEDS: NS 0.9% 1000 ml BAG 1,000 ML IV SCH ×3 (09:17→19:34)
[2023-03-29 10:36] LABS: Hepatitis B Surface Antigen Nonreactive (Nonreactive)
[2023-03-29 10:41] LABS: Hepatitis A Ab IgM Negative (Negative)
[2023-03-29 10:42] LABS: Hepatitis B Core IgM Nonreactive (Nonreactive)
[2023-03-29 10:54] LABS: Hepatitis C Antibody Negative (Negative)
[2023-03-30 04:47] LABS: ABS Basophils 0.1 10^3/uL (0.0-0.1); ABS Eosinophils 0.3 10^3/uL (0.0-0.5); ABS Lymphocytes 1.7 10^3/uL (1.0-4.8); ABS Monocytes 0.7 10^3/uL (0.0-1.1); ABS Neutrophils 6.2 10^3/uL (1.5-7.6); ABS Nucleated RBC 0.01 10^3/ul; Eosinophil % 3.7 %; Hematocrit 36.6 % (38-53); Hemoglobin 12.1 g/dL (13.2-16.3); Lymphocyte % 19.2 %; Mean Corpuscular Hemoglobin 32.1 pg (27-33); Mean Corpuscular Hgb Conc 33.1 g/dL (31-36); Mean Corpuscular Volume 96.9 fL (80-97); Mean Platelet Volume 8.1 fL (7.5-11.2); Nucleated Red Blood Cells % 0.1 /100 WBC (0.0-0.4); Platelet Count 251 10^3/uL (150-450); Red Blood Count 3.78 10^6/uL (4.06-5.63); Red Cell Distribution Width 13.7 % (12-17); White Blood Count 9.1 10^3/uL (3.6-10.2)
[2023-03-30 04:57] LABS: Albumin 3.5 g/dL (3.2-5.2); Magnesium 1.7 mg/dL (1.9-2.7); Potassium 3.3 mmol/L (3.5-5.0); Total Bilirubin 0.5 mg/dL (0.2-1.0)
[2023-03-30 05:03] LABS: Albumin/Globulin Ratio 1.6 (1-3); Creatinine, Serum 0.62 mg/dL (0.67-1.17); Globulin 2.2 g/dL (2-4); Phosphorus 2.6 mg/dL (2.5-5.0); Total Protein 5.7 g/dL (6.4-8.9); eGFR CKD-EPI 129.4 (>60)
[2023-03-30] MEDS ORDERED: Potassium Chlor 20 meq TAB.ER PO ONE (05:12)
[2023-03-30] MEDS ORDERED: Magnesium Sulfate IV 3 GM in NS 0.9% 100 ml BAG 100 ML IVPB ONE (05:12)
[2023-03-30] MEDS ORDERED: KCL 20 MEQ/100 ML IVPREMIX 20 MEQ/100 ML BAG IV ONE (05:13)
[2023-03-30 05:18] LABS: Lithium 0.6 mmol/L (0.6-1.2)
[2023-03-30] MEDS: Pantoprazole VIAL 40 MG VIAL IV SCH (06:37)
[2023-03-30] MEDS: Heparin 1,000 UNIT/ML 10 ml (10,000 UNITS) CATHLAB/DIALYSIS DIALYSIS SCH (10:57)
[2023-03-30] MEDS ORDERED: Al Hydrox/Mg Hydrox/Simet LIQ 30 ML UDC PO PRN (11:52)
[2023-03-31 08:15] LABS: HDL Cholesterol 40.1 mg/dL
[2023-04-01 09:57] LABS: Calcium 9.3 mg/dL (8.6-10.3); Creatinine, Serum 0.72 mg/dL (0.67-1.17); Potassium 4.2 mmol/L (3.5-5.0); eGFR CKD-EPI 123.7 (>60)
[2023-04-01 10:10] LABS: Lithium 1.17 mmol/L (0.6-1.2)
[2023-04-04 08:55] LABS: Calcium 9.9 mg/dL (8.6-10.3); Creatinine, Serum 0.75 mg/dL (0.67-1.17); Potassium 4.2 mmol/L (3.5-5.0); eGFR CKD-EPI 122.2 (>60)
[2023-04-04 09:02] LABS: Lithium 1.01 mmol/L (0.6-1.2)
[2023-04-06] MEDS: Nicotine GUM 2MG FRUIT FLAVOR PO PRN ×2 (12:06→16:02)
[2023-04-07] MEDS: Nicotine GUM 2MG FRUIT FLAVOR PO PRN (12:32)
[2023-04-08 09:11] LABS: Calcium 9.8 mg/dL (8.6-10.3); Creatinine, Serum 0.69 mg/dL (0.67-1.17); Potassium 4.2 mmol/L (3.5-5.0); eGFR CKD-EPI 125.3 (>60)
[2023-04-08 09:12] LABS: Lithium 0.5 mmol/L (0.6-1.2)
[2023-04-08 09:24] LABS: TSH Ultra Thyroid Stim Horm 3.55 mcIU/mL (0.34-5.60)
[2023-04-08] MEDS: Nicotine GUM 2MG FRUIT FLAVOR PO PRN ×2 (12:18→17:15)
[2023-04-10] MEDS: Nicotine GUM 2MG FRUIT FLAVOR PO PRN (17:15)
[2023-04-11] MEDS: Nicotine GUM 2MG FRUIT FLAVOR PO PRN (13:47)
[2023-04-12] MEDS: Nicotine GUM 2MG FRUIT FLAVOR PO PRN ×3 (11:01→18:13)
[2023-04-13 08:09] LABS: ABS Basophils 0.1 10^3/uL (0.0-0.1); ABS Eosinophils 0.4 10^3/uL (0.0-0.5); ABS Lymphocytes 1.9 10^3/uL (1.0-4.8); ABS Monocytes 0.7 10^3/uL (0.0-1.1); ABS Neutrophils 5.8 10^3/uL (1.5-7.6); ABS Nucleated RBC 0.01 10^3/ul; Eosinophil % 4.7 %; Hemoglobin 13.6 g/dL (13.2-16.3); Lymphocyte % 21.8 %; Mean Corpuscular Hemoglobin 31.5 pg (27-33); Mean Corpuscular Hgb Conc 33.2 g/dL (31-36); Mean Corpuscular Volume 94.7 fL (80-97); Mean Platelet Volume 7.8 fL (7.5-11.2); Nucleated Red Blood Cells % 0.1 /100 WBC (0.0-0.4); Platelet Count 340 10^3/uL (150-450); Red Blood Count 4.32 10^6/uL (4.06-5.63); Red Cell Distribution Width 13.8 % (12-17); White Blood Count 8.9 10^3/uL (3.6-10.2)
[2023-04-13 08:24] LABS: Calcium 9.5 mg/dL (8.6-10.3); Creatinine, Serum 0.72 mg/dL (0.67-1.17); Potassium 4.2 mmol/L (3.5-5.0); eGFR CKD-EPI 123.7 (>60)
[2023-04-13 08:27] LABS: Lithium 0.93 mmol/L (0.6-1.2)
[2023-04-13] MEDS: Nicotine GUM 2MG FRUIT FLAVOR PO PRN ×2 (12:52→16:23)
[2023-04-14] MEDS: Nicotine GUM 2MG FRUIT FLAVOR PO PRN (10:51)
[2023-04-14] MEDS: Nicotine GUM 4MG FRUIT FLAVOR PO PRN ×2 (14:36→17:32)
[2023-04-15] MEDS: Nicotine GUM 4MG FRUIT FLAVOR PO PRN ×3 (11:06→17:08)
[2023-04-16] MEDS: Nicotine GUM 4MG FRUIT FLAVOR PO PRN ×4 (10:54→19:12)
[2023-04-17] MEDS: Nicotine GUM 4MG FRUIT FLAVOR PO PRN ×2 (12:14→16:36)
[2023-04-18 07:48] VITALS: BP 123/78
== END 2023-04-18 13:11 | disposition home or self-care (01) | DRG 908 ==
LOC: ED 21:53 → ICU 03-29 00:29 → SUATTDRO 03-29 00:29 → BSU 03-29 00:37
PROVIDERS: ADMIT Surgery Surgical Critical Care; ATTEND Psychiatry & Neurology Psychiatry

== ENCOUNTER 2023-04-27 12:10 | Inpatient (IN) ==
[2023-04-27] MEDS: Lactated Ringers 1000 ml BAG 1,000 ML IV SCH ×3 (12:35→16:52)
[2023-04-27] MEDS ORDERED: Midazolam 5 mg/ml concentrated 5 mg/ml 1 ml VIAL ONE (12:41)
[2023-04-27 13:00] LABS: ABS Basophils 0.1 10^3/uL (0.0-0.1); ABS Eosinophils 0.6 10^3/uL (0.0-0.5); ABS Lymphocytes 3.6 10^3/uL (1.0-4.8); ABS Neutrophils 8.3 10^3/uL (1.5-7.6); ABS Nucleated RBC 0.02 10^3/ul; Eosinophil % 4.2 %; Hematocrit 40.5 % (38-53); Hemoglobin 13.5 g/dL (13.2-16.3); Lymphocyte % 26.8 %; Mean Corpuscular Hemoglobin 30.8 pg (27-33); Mean Corpuscular Hgb Conc 33.2 g/dL (31-36); Mean Corpuscular Volume 92.6 fL (80-97); Mean Platelet Volume 8.2 fL (7.5-11.2); Nucleated Red Blood Cells % 0.1 /100 WBC (0.0-0.4); Platelet Count 354 10^3/uL (150-450); Red Blood Count 4.37 10^6/uL (4.06-5.63); Red Cell Distribution Width 13.7 % (12-17); White Blood Count 13.5 10^3/uL (3.6-10.2)
[2023-04-27 13:02] LABS: Albumin 4.7 g/dL (3.2-5.2); Anion Gap 9 mmol/L (2-16); CO2 Carbon Dioxide 23 mmol/L (22-32); Calcium 9.4 mg/dL (8.6-10.3); Chloride 107 mmol/L (101-111); Potassium 3.7 mmol/L (3.5-5.0); Sodium 139 mmol/L (135-145)
[2023-04-27 13:08] LABS: ALT 34 U/L (7-52); AST 21 U/L (13-39); Albumin/Globulin Ratio 1.8 (1-3); Alkaline Phosphatase 74 U/L (35-149); Blood Urea Nitrogen 10 mg/dL (6-24); Creatine Kinase 57 U/L (10-223); Creatinine, Serum 0.88 mg/dL (0.67-1.17); Globulin 2.6 g/dL (2-4); Glucose 140 mg/dL (70-100); Total Protein 7.3 g/dL (6.4-8.9); eGFR CKD-EPI 116.4 (>60)
[2023-04-27 13:31] LABS: Acetaminophen < 15 mcg/mL; Alcohol, S < 13 mg/dL (<13); Lithium 0.83 mmol/L (0.6-1.2); Salicylate < 2.50 mg/dL (<30)
[2023-04-27 13:44] LABS: TSH Ultra Thyroid Stim Horm 7.38 mcIU/mL (0.34-5.60)
[2023-04-27] MEDS ORDERED: Midazolam 5 mg/5 ml VIAL 1 mg/ml 5 ml VIAL (5 mg) IV SLOW PU ONE ×2 (14:09→14:10)
[2023-04-27] MEDS ORDERED: Midazolam 10 mg/10 ml VIAL 1 mg/ml 10 ml VIAL (10 mg) IV SLOW PU ONE (14:37)
[2023-04-27] MEDS ORDERED: Dexmedetomidine 1,000 MCG in NS 0.9% 250 ml 240 ML IV SCH (15:00)
[2023-04-27 15:15] LABS: Urine Appearance Clear; Urine Bilirubin Negative (Negative); Urine Blood Negative (Negative); Urine Color Straw; Urine Glucose Negative (Negative); Urine Ketones Negative (Negative); Urine Nitrite Negative (Negative); Urine Protein Negative (Negative); Urine Specific Gravity 1.005 (1.002-1.030); Urine Urobilinogen Negative (Negative)
[2023-04-27 15:35] LABS: Urine Benzodiazepine Screen Presumptive Positive (None Detect); Urine Cannabinoids Screen None Detected (None Detect); Urine Opiates Screen None Detected (None Detect)
[2023-04-27] MEDS ORDERED: Enoxaparin 40 MG/0.4 ML SYR SUBCUT SCH (16:00)
[2023-04-28] MEDS: Lactated Ringers 1000 ml BAG 1,000 ML IV SCH ×2 (00:10→07:35)
[2023-04-28 04:28] LABS: ABS Basophils 0.1 10^3/uL (0.0-0.1); ABS Eosinophils 0.5 10^3/uL (0.0-0.5); ABS Lymphocytes 2.7 10^3/uL (1.0-4.8); ABS Monocytes 0.7 10^3/uL (0.0-1.1); ABS Neutrophils 6.1 10^3/uL (1.5-7.6); Eosinophil % 4.6 %; Hematocrit 35.3 % (38-53); Hemoglobin 11.8 g/dL (13.2-16.3); Lymphocyte % 27.1 %; Mean Corpuscular Hemoglobin 31.7 pg (27-33); Mean Corpuscular Hgb Conc 33.5 g/dL (31-36); Mean Corpuscular Volume 94.8 fL (80-97); Mean Platelet Volume 7.8 fL (7.5-11.2); Platelet Count 264 10^3/uL (150-450); Red Blood Count 3.72 10^6/uL (4.06-5.63); Red Cell Distribution Width 13.6 % (12-17); White Blood Count 10.1 10^3/uL (3.6-10.2)
[2023-04-28 05:03] LABS: Albumin 3.9 g/dL (3.2-5.2); Calcium 8.9 mg/dL (8.6-10.3); Potassium 3.9 mmol/L (3.5-5.0); Total Bilirubin 0.4 mg/dL (0.2-1.0)
[2023-04-28 05:09] LABS: Albumin/Globulin Ratio 2.2 (1-3); Creatinine, Serum 0.72 mg/dL (0.67-1.17); Globulin 1.8 g/dL (2-4); Total Protein 5.7 g/dL (6.4-8.9); eGFR CKD-EPI 123.7 (>60)
[2023-04-28] MEDS ORDERED: Acetaminophen IV 1 GM/100ML 1,000 MG/100 ML BAG IV PRN (08:03)
[2023-04-28] MEDS ORDERED: OLANZapine 5 mg TAB *ODT PO PRN (11:57)
[2023-04-28] MEDS: Nicotine GUM 2MG FRUIT FLAVOR PO PRN ×2 (14:51→17:43)
[2023-04-29 08:38] LABS: ABS Basophils 0.1 10^3/uL (0.0-0.1); ABS Eosinophils 0.5 10^3/uL (0.0-0.5); ABS Lymphocytes 1.7 10^3/uL (1.0-4.8); ABS Monocytes 0.7 10^3/uL (0.0-1.1); ABS Neutrophils 6.4 10^3/uL (1.5-7.6); Eosinophil % 5.2 %; Hematocrit 37.9 % (38-53); Hemoglobin 12.7 g/dL (13.2-16.3); Lymphocyte % 17.9 %; Mean Corpuscular Hemoglobin 31.5 pg (27-33); Mean Corpuscular Hgb Conc 33.5 g/dL (31-36); Mean Platelet Volume 8.3 fL (7.5-11.2); Platelet Count 290 10^3/uL (150-450); Red Blood Count 4.03 10^6/uL (4.06-5.63); Red Cell Distribution Width 13.8 % (12-17); White Blood Count 9.3 10^3/uL (3.6-10.2)
[2023-04-29 08:50] LABS: Albumin 4.2 g/dL (3.2-5.2); Albumin/Globulin Ratio 1.8 (1-3); Calcium 9.2 mg/dL (8.6-10.3); Creatinine, Serum 0.72 mg/dL (0.67-1.17); Globulin 2.3 g/dL (2-4); HDL Cholesterol 43.5 mg/dL; Magnesium 2.1 mg/dL (1.9-2.7); Potassium 4.1 mmol/L (3.5-5.0); Total Bilirubin 0.3 mg/dL (0.2-1.0); Total Protein 6.5 g/dL (6.4-8.9); eGFR CKD-EPI 123.7 (>60)
[2023-04-29] MEDS: Nicotine GUM 2MG FRUIT FLAVOR PO PRN ×2 (11:04→13:12)
[2023-04-29] MEDS: Nicotine Lozenge mini 2 MG LOZNG.MINI MT PRN (18:35)
[2023-04-30 08:14] LABS: ABS Basophils 0.1 10^3/uL (0.0-0.1); ABS Eosinophils 0.4 10^3/uL (0.0-0.5); ABS Lymphocytes 2.1 10^3/uL (1.0-4.8); ABS Monocytes 0.8 10^3/uL (0.0-1.1); ABS Neutrophils 5.7 10^3/uL (1.5-7.6); ABS Nucleated RBC 0.01 10^3/ul; Eosinophil % 4.7 %; Hemoglobin 12.8 g/dL (13.2-16.3); Lymphocyte % 23.1 %; Mean Corpuscular Hemoglobin 32.1 pg (27-33); Mean Corpuscular Hgb Conc 34.7 g/dL (31-36); Mean Corpuscular Volume 92.7 fL (80-97); Mean Platelet Volume 7.9 fL (7.5-11.2); Nucleated Red Blood Cells % 0.1 /100 WBC (0.0-0.4); Platelet Count 285 10^3/uL (150-450); Red Blood Count 3.99 10^6/uL (4.06-5.63); Red Cell Distribution Width 13.6 % (12-17); White Blood Count 9.1 10^3/uL (3.6-10.2)
[2023-04-30 08:25] LABS: Albumin 4.2 g/dL (3.2-5.2); Albumin/Globulin Ratio 1.8 (1-3); Calcium 9.4 mg/dL (8.6-10.3); Creatinine, Serum 0.85 mg/dL (0.67-1.17); Globulin 2.4 g/dL (2-4); Potassium 4.2 mmol/L (3.5-5.0); Total Bilirubin 0.3 mg/dL (0.2-1.0); Total Protein 6.6 g/dL (6.4-8.9); eGFR CKD-EPI 117.7 (>60)
[2023-04-30] MEDS: Nicotine Lozenge mini 2 MG LOZNG.MINI MT PRN ×3 (10:15→17:42)
[2023-05-01] MEDS: Nicotine Lozenge mini 2 MG LOZNG.MINI MT PRN ×4 (10:44→18:44)
[2023-05-02] MEDS: Nicotine Lozenge mini 2 MG LOZNG.MINI MT PRN ×3 (10:02→17:06)
[2023-05-03] MEDS: Nicotine Lozenge mini 2 MG LOZNG.MINI MT PRN ×3 (08:58→17:23)
[2023-05-04] MEDS: Nicotine Lozenge mini 2 MG LOZNG.MINI MT PRN ×3 (12:05→17:41)
[2023-05-04] MEDS: Al Hydrox/Mg Hydrox/Simet LIQ 30 ML UDC PO PRN (19:49)
[2023-05-05] MEDS: Nicotine Lozenge mini 2 MG LOZNG.MINI MT PRN ×3 (10:46→18:37)
[2023-05-06] MEDS: Nicotine Lozenge mini 2 MG LOZNG.MINI MT PRN ×3 (10:22→19:49)
[2023-05-06] MEDS: Nicotine GUM 2MG FRUIT FLAVOR PO PRN (17:17)
[2023-05-07] MEDS: Nicotine Lozenge mini 2 MG LOZNG.MINI MT PRN ×2 (09:03→14:00)
[2023-05-07] MEDS: Nicotine GUM 2MG FRUIT FLAVOR PO PRN ×2 (12:23→17:22)
[2023-05-08] MEDS: Nicotine Lozenge mini 2 MG LOZNG.MINI MT PRN ×2 (09:19→12:22)
[2023-05-08] MEDS: Nicotine GUM 2MG FRUIT FLAVOR PO PRN ×3 (10:59→17:43)
[2023-05-09] MEDS: Nicotine GUM 2MG FRUIT FLAVOR PO PRN (10:04)
[2023-05-09] MEDS: Nicotine Lozenge mini 4 MG LOZNG.MINI MT PRN ×2 (12:32→16:08)
[2023-05-09] MEDS: Nicotine GUM 4MG FRUIT FLAVOR PO PRN ×2 (14:07→17:19)
[2023-05-09] MEDS: Al Hydrox/Mg Hydrox/Simet LIQ 30 ML UDC PO PRN (14:07)
[2023-05-10] MEDS: Nicotine Lozenge mini 4 MG LOZNG.MINI MT PRN ×3 (09:36→20:28)
[2023-05-10] MEDS: Nicotine GUM 4MG FRUIT FLAVOR PO PRN ×2 (12:22→17:30)
[2023-05-11] MEDS: Nicotine Lozenge mini 4 MG LOZNG.MINI MT PRN ×3 (09:49→17:23)
[2023-05-11] MEDS: Nicotine GUM 4MG FRUIT FLAVOR PO PRN ×2 (12:38→15:39)
[2023-05-12] MEDS: Nicotine Lozenge mini 4 MG LOZNG.MINI MT PRN ×3 (09:29→17:25)
[2023-05-12] MEDS: Nicotine GUM 4MG FRUIT FLAVOR PO PRN ×3 (12:13→19:02)
[2023-05-12] MEDS: Al Hydrox/Mg Hydrox/Simet LIQ 30 ML UDC PO PRN (19:56)
[2023-05-13] MEDS: Nicotine Lozenge mini 4 MG LOZNG.MINI MT PRN ×3 (09:54→17:14)
[2023-05-13] MEDS: Nicotine GUM 4MG FRUIT FLAVOR PO PRN ×2 (11:09→14:16)
[2023-05-13 12:59] LABS: ABS Basophils 0.1 10^3/uL (0.0-0.1); ABS Eosinophils 0.3 10^3/uL (0.0-0.5); ABS Lymphocytes 2.4 10^3/uL (1.0-4.8); ABS Monocytes 0.8 10^3/uL (0.0-1.1); ABS Neutrophils 8.3 10^3/uL (1.5-7.6); ABS Nucleated RBC 0.01 10^3/ul; Eosinophil % 2.7 %; Hematocrit 38.1 % (38-53); Hemoglobin 12.9 g/dL (13.2-16.3); Lymphocyte % 19.9 %; Mean Corpuscular Hemoglobin 31.7 pg (27-33); Mean Corpuscular Hgb Conc 33.8 g/dL (31-36); Mean Corpuscular Volume 93.6 fL (80-97); Mean Platelet Volume 7.6 fL (7.5-11.2); Nucleated Red Blood Cells % 0.1 /100 WBC (0.0-0.4); Platelet Count 318 10^3/uL (150-450); Red Blood Count 4.07 10^6/uL (4.06-5.63); Red Cell Distribution Width 13.9 % (12-17); White Blood Count 11.9 10^3/uL (3.6-10.2)
[2023-05-14] MEDS: Nicotine GUM 4MG FRUIT FLAVOR PO PRN ×2 (08:22→15:09)
[2023-05-14] MEDS: Nicotine Lozenge mini 4 MG LOZNG.MINI MT PRN ×2 (10:52→17:57)
[2023-05-14] MEDS: Al Hydrox/Mg Hydrox/Simet LIQ 30 ML UDC PO PRN (17:30)
[2023-05-15] MEDS: Nicotine Lozenge mini 4 MG LOZNG.MINI MT PRN ×3 (07:55→16:00)
[2023-05-15] MEDS: Nicotine GUM 4MG FRUIT FLAVOR PO PRN ×2 (07:55→14:22)
[2023-05-15 19:12] VITALS: BP 124/94
[2023-05-16] MEDS: Nicotine Lozenge mini 4 MG LOZNG.MINI MT PRN (08:27)
== END 2023-05-16 09:26 | DRG 918 ==
LOC: ED 12:10 → EDHOLD 15:05 → OBSVTOIN 15:05 → INTOOBSV 15:05 → ICU 16:41 → BSU 04-28 11:58
PROVIDERS: ADMIT Surgery Surgical Critical Care; ATTEND Psychiatry & Neurology Psychiatry